=== PATIENT | male | born 1995 | race African-American/Black ===

== ENCOUNTER 2021-03-01 16:57 | Emergency (ER) | payer SELFPAY ==
[2021-03-01 17:14] VITALS: BP 140/76; PULSE 91; RESP 16; TEMP 36.7; O2SAT 99
--- NOTE | 2021-03-01 17:57 | ED.GENADULT ---
HPI - General Adult General Chief complaint: Dental/Oral Stated complaint: swelling gums Source: patient Mode of arrival: ambulatory Limitations: no limitations History of Present Illness HPI narrative: Patient is a 25-year-old -[place] male who presents to the urgent care via POV for evaluation of dental pain that has been present for approximately 1 month. Patient reports his dental pain is located on the left back, upper tooth. Additionally, he reports gum swelling and facial swelling. Pain is intermittent and shooting in nature. Pain worsened over the past 2 weeks prompting today's visit. No relief with Orajel or ibuprofen. Chewing increases pain. Patient does not have a dentist. Related Data Allergies Allergy/AdvReac Type Severity Reaction Status Date / Time No Known Allergies Allergy Verified 03/01/21 17:16 Review of Systems Review of Systems: Denies poor dentition, abscess, and drug use. Pertinent negatives fever, chills, sweats, poor p.o. intake, change in appetite, recent weight loss, malaise, headache, dizziness, skin color changes, lymphadenopathy, ear pain/drainage, nasal drainage/congestion, hearing loss, tinnitus, vertigo, gum redness, inability to swallow, drooling, sore throat, nausea, vomiting, sob, chest pain, and heart palpitations/murmurs. PMFSH Comments I have reviewed and agree with the patient's past medical, surgical, social, and family hx as documented by the RN. There is no relevant family history pertinent to the presenting complaint. Exam Narrative: GENERAL: Well-appearing, well-nourished, and in no acute distress. HEAD: Normocephalic, atraumatic. No sinus tenderness or facial swelling. NECK: Supple. No lymphadenopathy or nuchal rigidity. CHEST: Lung sounds are clear to auscultation in bilateral lung aquino. No respiratory distress. No evidence of cough upon examination. HEART: Regular rate and rhythm. No murmurs, gallops, or rubs heard. Normal peripheral pulses. Eyes: PERRLA and EOMI. Bilateral conjunctiva with erythema. Normal sclera, eyelids, and eyelashes. Periorbital areas without swelling, erythema, and warmth. No drainage appreciated. ENT: Ears: TMs pearly vergara. No bulging, erythema, or fluid appreciated. External auditory canals are Nose: Nares clear, no rhinorrhea or epistaxis. No swelling or erythema. Throat/Mouth: No evidence of swelling, erythema, exudate, peritonsillar mass, lesions, ulcers or drooling. Uvula is midline and without erythema and swelling. Mucous membranes moist. Voice and breath odor normal. Mild swelling noted to gums surrounding tooth #14 and 15. No evidence of dental abscess, dental carries, avulsion, or fracture teeth. EXTREMITIES: Normal range of motion. No edema. SKIN: Warm, dry, no rash. No skin color changes. Excellent turgor. NEURO: No focal deficits. Alert and oriented x3. Course Vital Signs Vital signs: Vital Signs Temperature 98.0 F 03/01/21 17:14 Pulse Rate 91 03/01/21 17:14 Respiratory Rate 16 03/01/21 17:14 Blood Pressure 140/76 03/01/21 17:14 Pulse Oximetry 99 03/01/21 17:14 Temperature 98.0 F 03/01/21 17:14 Pulse Rate 91 03/01/21 17:14 Respiratory Rate 16 03/01/21 17:14 Blood Pressure 140/76 03/01/21 17:14 Pulse Oximetry 99 03/01/21 17:14 Due to an elevated blood pressure, I had a detailed discussion with the patient and/or guardian regarding the need for follow-up with their primary care provider within the next 3-4 days. Patient verbalized understanding and agreed. Medical Decision Making Differential Diagnosis Differential Diagnosis: Abscess, cellulitis, dental caries, gingivitis Medical Records Medical records reviewed: Yes I reviewed the external patient's medical records. Vital Signs Vital Signs: Vital Signs Temperature 98.0 F 03/01/21 17:14 Pulse Rate 91 03/01/21 17:14 Respiratory Rate 16 03/01/21 17:14 Blood Pressure 140/76 03/01/21 17:14 Pulse Oximetry 99 03/01/21 17:14
== END 2021-03-01 18:01 | disposition home or self-care (01) ==
PROVIDERS: Emergency Provider Nurse Practitioner Family
DX: K08.89 Other specified disorders of teeth and supporting structures (principal)
CPT/HCPCS: 99213; G0463